=== PATIENT | female | born 1975 | race Caucasian/White ===

== ENCOUNTER 2017-01-28 06:06 | Emergency (ER) | payer OTHER ==
[~2017-01-28] VITALS: Ht 157.5 cm; Wt 64.0 kg
[2017-01-28 06:10] VITALS: Ht 157.5 cm; Wt 64.0 kg
[2017-01-28] MEDS ORDERED: ESCI20TA PO (06:20)
[2017-01-28] MEDS ORDERED: iud (06:21)
--- NOTE | 2017-01-28 06:38 | NUR ---
PROVIDER DR. Balbir SCHMIDT IN ROOM WITH PT.
--- NOTE | 2017-01-28 06:41 | ERPDOC ---
Departure Disposition Decision Date: Jan 28, 2017 Disposition Decision Time: 06:58 Disposition: 01 DISCHARGED HOME, SELF-CARE Impression Impression Impression: Primary Impression: Fracture of 5th metatarsal Encounter type: initial encounter Fracture type: closed Fracture alignment : nondisplaced Laterality: left Qualified Codes: S92.355A - Nondisplaced fracture of fifth metatarsal bone, left foot, initial encounter for closed fracture Severity: Mild Condition: Improved Seen By: Physician only Referrals: JEROMY LOVING MD 1-2 days SANDRA RUIZ MD 1 Week Call for appointment Patient Instructions: Foot Fracture in Adults (ED) Problems/Meds/Labs Reviewed?: Yes Medications reviewed and manag: Yes Additional Instructions: 1. Rest, ICE, Elevate 2. Motrin or Tylenol for pain 3. Follow with Orthopedics in 1 week, call today for appointment 4. Follow with your Family Doctor as needed Follow up care ordered?: Yes Mental Status: Alert, Oriented Scripts Hydrocodone/Acetaminophen ([place] 5-325 Tablet) 5-325 Tablet 1 TAB PO Q4-6H for PAIN, #20 TAB 0 Refills Prov: HANNAH SCHMIDT DO 01/28/17 Ibuprofen (Ibuprofen) 600 Mg Tablet 1 TAB PO Q6-8H Y for PAIN, #30 TAB 0 Refills Prov: HANNAH SCHMIDT DO 01/28/17 HPI General Chief Complaint: Lower Extremity Injury Stated Complaint: FALL L FOOT INJURY Time Seen by Provider: 06:12 Source: patient (Patient presents to the ER with left lateral foot pain, along the 5th metatarsal, after misstepping on a stair climber. No obvious trauma is noted to the foot. ) Exam Limitations: no limitations HPI Foot/Ankle Occurred At: other (Gym) Onset: Changing over time Duration: 1-3 hrs Pain Scale: Now & Worst: 6/10 Location: left: foot Method of Injury: sports injury Modifying Factors: IMPROVES WITH: pain medication, rest, WORSE WITH: movement Associated Symptoms: pain with standing Allergies: Coded Allergies: No Known Allergies (Unverified , 01/28/17) Past History Past Medical History Pt denies signifigant PMH Hx Echocardiogram: No Surgical History Denies Surgeries Family History Family History: Negative Social History Smoking Status: Never smoker Does patient use chewing tobac: No Second Hand Exposure: No Substance Use Type: does not use Alcohol Intake: none Marital Status: Sexuality: male partner Housing: house Household Members: spouse Service: No Occupational Hazard: No Advance Directives: Yes Full Code Record Review Pertinent history updated: Yes Review of Systems Constitutional Constitutional: DENIES: chills, fever Eyes Lids/Accessories: DENIES: erythema, swelling ENMT Ears: DENIES: erythema, pain Balance: DENIES: ataxia, vertigo Sinuses: DENIES: congestion, rhinorrhea Mouth/Throat: DENIES: sore throat Cardiovascular Cardiac: DENIES: chest pain, dyspnea on exertion, orthopnea Rhythm/Rate: DENIES: tachycardia Pulmonary Respiratory: DENIES: cough, dyspnea, sputum GI Upper Abdomen: DENIES: nausea, pain, vomiting Lower Abdomen: DENIES: constipation, diarrhea, pain General: DENIES: dysuria Musculoskeletal General: pain, see HPI, tenderness, DENIES: cramps, joint pain, joint swelling , weakness Integumentary Skin: DENIES: color change, itching, rash Neurological General: DENIES: ataxia, change in strength, headache, numbness, poor coordination, seizures, syncope, vertigo, weakness Psychiatric Psychiatric: DENIES: anxiety, depression, nervousness Hematologic/Lymphatic Hematologic/Lymphatic: DENIES: anemia Allergic/Immunological Allergic/Immunoligical: DENIES: sneezing All other Systems All Other Systems: Reviewed and Negative Exam General General Nourishment: well nourished, well developed, appears stated age, no acute distress, adult General Body Habitus: well groomed Vital Signs: RN Vital Signs have been reviewed: Yes, Heart Rate: 58, Respiratory Rate: 14, BP: 119/57, Pulse Oximetry: 98 Height (Feet): 5 Height (Inches): 2.00 Fastrak Foot/Ankle Foot/Ankle : Leg: Left Leg: NOT FOUND: atrophy, contusion, deformity, discoloration, edema, numbness, swelling, tender, weakness Ankle: achilles tendon insertion (intact), tender lat. foot, NOT FOUND: anterior drawer sign, decreased ROM, deformity, ecchymosis, foot drop, numbness , swelling, tender lat. malleolus, tender med. malleolus, tender mid foot, weakness Foot: NOT FOUND: atrophy, deformity, discoloration, numbness, swelling, tender 1st MTP joint, tender plantar fascia Toes: NOT FOUND: decreased ROM, deformity, ecchymosis, erythema, nail avulsion, subungual hematoma Posterior Tibial Pulse: 2+ Dorsalis Pedis Pulse: 2+ Eyes (brief) Eyes Brief: found: EOMI, PERRL ENMT (brief) ENMT Brief: FOUND: mucosa moist Neck (brief) Neck Brief: FOUND: trachea midline, NOT FOUND: tenderness, tracheal deviation Respiratory (brief) Respiratory Brief: FOUND: clear all bundy, equal bilaterally Cardiovascular (brief) Cardiac Brief: FOUND: regular rate, regular rhythm Abdomen (brief) Abdominal Brief: FOUND: bowel normo active x4, soft, NOT FOUND: distended, tender Integumentary (brief) Integumentary Brief: FOUND: pink, warm Neurologic (brief) Neurological Brief: FOUND: CN w/o gross def to obs, gait w/o gross def to obs, motor-no gross deficits, sensory-no gross deficits, NOT FOUND: ataxia Neurologic RN Documented GCS Eye Opening: Verbal: Motor: Total: Psychiatric (brief) Psychiatric Brief: FOUND: alert, attentive, normal affect, oriented Differential Diagnoses Considering: Contusion, Fracture, Sprain, Strain, Stress Fracture Progress Results/Orders Orders Procedure Category Date Status Time Foot Left 3 Views RAD 01/28/17 Taken Hydrocodone/Acetaminophen PHA 01/28/17 Complete ([place] 5/325) 06:45 Ibuprofen (Motrin) PHA 01/28/17 Complete 06:45 Premade Splint EDM 01/28/17 Transmitted 07:03 Crutches EDM 01/28/17 Transmitted 07:03 Medications Current ED Medications Acetaminophen/ Hydrocodone Bitart ([place] 5/325) 1 tab O ONCE PO ; Start at 06:45; Stop 01/28/17 at 06:46; Status DC Ibuprofen (Motrin) 600 mg O ONCE PO Last administered on 01/28/17t 06:44; Start 01/28/17 at 06:45; Stop 01/28/17 at 06:46; Status DC Xray Xray : Reason for Exam: Left foot Pain Xray: Foot L Interpretation: Abnormal, Interpreted by Me (Fractured Proximal 5th Metatarsal) HANNAH SCHMIDT DO Jan 28, 2017 06:41
--- NOTE | 2017-01-28 06:44 | NUR ---
PT REFUSED NORCO PT REFUSED NORCO IF IT MEANT SHE COULD NOT DRIVE HERSELF HOME. PROVIDER NOTIFIED AND ORDER CHANGED TO IBUPROFEN.
[2017-01-28] MEDS ORDERED: IBUPROFEN 600 MG TABLET PO ONE (06:45)
[2017-01-28] MEDS ORDERED: HYDROCODONE/APAP 5 mg/325 mg TABLET PO ONE (06:45)
--- NOTE | 2017-01-28 06:46 | NUR ---
XRAY PT TO XRAY PER COT.
[2017-01-28] MEDS ORDERED: IBUP-2067 PO (07:03)
[2017-01-28] MEDS ORDERED: HYDR-4246 PO (07:03)
[2017-01-28 07:15] VITALS: BP 120/70; PULSE 64; RESP 14; TEMP 97.8; O2SAT 99
--- NOTE | 2017-01-28 09:22 | DI ---
Indication: ITS.REASON: pain lateral foot PROCEDURE: FOOT LEFT 3 VIEWS: Encounter: Initial Comparison: None Findings: Minimally displaced fracture of the fifth metatarsal base. No additional acute fracture or dislocation seen. Impression: Closed posttraumatic fifth metatarsal base fracture. .
== END 2017-01-28 07:15 | disposition home or self-care (01) ==
LOC: ED 06:06
DX: S92.355A Nondisplaced fracture of fifth metatarsal bone, left foot, initial encounter for closed fracture (principal); X58.XXXA Exposure to other specified factors, initial encounter; Y93.A1 Activity, exercise machines primarily for cardiorespiratory conditioning; Y92.39 Other specified sports and athletic area as the place of occurrence of the external cause; Y99.8 Other external cause status

== ENCOUNTER → 2017-02-03 | Outpatient (CLI) | payer OTHER ==
[~2017-02-03] MED LIST: ESCI20TA PO; HYDR-4246 PO; IBUP-2067 PO; iud
--- NOTE | 2017-02-03 14:07 | DI ---
EXAM: FOOT LEFT 3 VIEWS DATE: 02/03/2017 12:00 AM ENCOUNTER: Subsequent INDICATION: Follow-up fifth metatarsal fracture COMPARISON: None available. TECHNIQUE: 3 views of the foot were obtained. FINDINGS: Bony mineralization is normal. Unchanged radiographic appearance and alignment of the previously noted minimally displaced fracture of the fifth metatarsal base. The joint spaces are maintained. The Lisfranc joint is congruent. No focal radiographically apparent soft tissue swelling seen. No radiopaque foreign body. IMPRESSION: Unchanged radiographic appearance and alignment of the previously noted minimally displaced fracture of the fifth metatarsal base. .
== END ==
LOC: IMA 13:21
PROVIDERS: ATTEND Family Medicine Sports Medicine
DX: S92.355D Nondisplaced fracture of fifth metatarsal bone, left foot, subsequent encounter for fracture with routine healing (principal); Y93.A1 Activity, exercise machines primarily for cardiorespiratory conditioning